=== PATIENT | female | born 1955 | race Caucasian/White ===

== ENCOUNTER 2017-10-13 01:22 | Emergency (ER) | payer BC ==
[2017-10-13] MEDS ORDERED: predniSONE 20 MG TAB ONE ×2 (01:45)
== END 2017-10-13 02:01 | disposition home or self-care (01) ==
LOC: BURERS 01:22
DX: J06.9 Acute upper respiratory infection, unspecified (principal); J45.909 Unspecified asthma, uncomplicated; Z79.899 Other long term (current) drug therapy
CPT/HCPCS: J7506; J7620